=== PATIENT | female | born 1990 | race American Indian/Alaskan Native ===

== ENCOUNTER 2017-07-02 05:13 | Emergency (ER) | payer MEDICAID, MEDICARE, OTHER ==
[2017-07-02 05:14] VITALS: BMI 61.6
[2017-07-02 05:21] VITALS: TEMP 98.6; O2SAT 99
--- NOTE | 2017-07-02 05:42 | ED PDOC ---
Arrival/HPI - General Chief Complaint: Medical Clearance Time Seen by Provider: 07/02/17 05:32 Historian: Patient - History of Present Illness Narrative History of Present Illness (Text): 07/02/17 05:52 27 year old female, whose past medical history includes polycystic ovarian syndrome and anemia, presents to the emergency department complaining vaginal bleeding. Patient states she began experiencing heavy vaginal bleeding 4 days prior. Patient notes her menstrual cycles have been irregular since she was 16. Patient states her last menstrual period was 1 month ago. Patient denies any abdominal pain, fever, chills, chest pain, shortness of breath, nausea, vomiting , diarrhea, urinary symptoms, back pain, neck pain, headache, dizziness, or any other complaints. Dampener Operator: Dr. Lenz Time/Duration: < week (4 days) Symptom Onset: Gradual Symptom Course: Unchanged Context: Home Past Medical History - Provider Review Nursing Documentation Reviewed: Yes - Infectious Disease Hx of Infectious Diseases: None - Tetanus Immunization Tetanus Immunization: Unknown - Cardiac Hx Hypertension: Yes - Pulmonary Hx Bronchitis: Yes - Neurological Hx Neurological Disorder: No - HEENT Hx HEENT Disorder: No - Renal Hx Renal Disorder: No - Endocrine/Metabolic Hx Endocrine Disorders: No - Hematological/Oncological Hx Blood Disorders: No - Integumentary Hx Dermatological Disorder: No - Musculoskeletal/Rheumatological Hx Musculoskeletal Disorders: No - Gastrointestinal Hx Gastrointestinal Disorders: No - Genitourinary/Gynecological Other/Comment: polycystic ovaries - Psychiatric Hx Schizophrenia: Yes (affective) Hx Substance Use: No - Past Surgical History Past Surgical History: No Previous - Surgical History Hx Cholecystectomy: Yes (1 year ago) - Anesthesia Hx Anesthesia: Yes Hx Anesthesia Reactions: No - Suicidal Assessment Feels Threatened In Home Enviroment: No Family/Social History - Physician Review Nursing Documentation Reviewed: Yes Family/Social History: No Known Family HX Smoking Status: Never Smoked Hx Alcohol Use: No Hx Substance Use: No Hx Substance Use Treatment: No Allergies/Home Meds Allergies/Adverse Reactions: Allergies diphenhydramine Allergy (Verified 07/02/17 05:22) DIZZINESS diphenhydramine HCl [From Benadryl] Adverse Reaction (Severe, Verified 07/02/17 05:22) OTHER "FEELS JITTERY" Home Medications: Home Meds Medication Instructions Recorded Confirmed LORazepam [Ativan] 0.5 mg PO BID 09/28/15 07/02/17 Review of Systems - Physician Review All systems were reviewed & negative as marked: Yes - Review of Systems Constitutional: absent: Fevers, Other (Chills) Respiratory: absent: SOB Cardiovascular: absent: Chest Pain Gastrointestinal: absent: Abdominal Pain, Diarrhea, Nausea, Vomiting Genitourinary Female: Vaginal Bleeding (heavy bleeding for the past 4 days). absent: Dysuria, Hematuria Musculoskeletal: absent: Back Pain, Neck Pain Neurological: absent: Headache, Dizziness Physical Exam Vital Signs Reviewed: Yes Vital Signs Temp Pulse Resp BP Pulse Ox 07/02/17 05:20 98.6 F 110 H 18 138/83 99 Temperature: Afebrile Blood Pressure: Normal Pulse: Regular Respiratory Rate: Normal Appearance: Positive for: Well-Appearing, Non-Toxic, Comfortable Pain Distress: None Mental Status: Positive for: Alert and Oriented X 3 - Systems Exam Head: Present: Atraumatic, Normocephalic Pupils: Present: PERRL Extroacular Muscles: Present: EOMI Conjunctiva: Present: Normal Mouth: Present: Moist Mucous Membranes Neck: Present: Normal Range of Motion Respiratory/Chest: Present: Clear to Auscultation, Good Air Exchange. No: Respiratory Distress, Accessory Muscle Use Cardiovascular: Present: Regular Rate and Rhythm Abdomen: Present: Normal Bowel Sounds. No: Tenderness, Distention, Peritoneal Signs Genitourinary/Pelvic Exam: Present: Normal External Genitalia, Vaginal Bleeding (scanty amount in vaginal introitus), Other (RN Laura present as dinkey operator slag) Upper Extremity: Present: Normal Inspection. No: Cyanosis, Edema Lower Extremity: Present: Normal Inspection. No: Edema, CALF TENDERNESS Neurological: Present: GCS=15, CN II-XII Intact, Speech Normal Skin: Present: Warm, Dry, Normal Color. No: Rashes Psychiatric: Present: Alert, Oriented x 3, Normal Insight, Normal Concentration Medical Decision Making ED Course and Treatment: 07/02/17 05:43 Impression: 27 year old female presents complaining of heavy vaginal bleeding for the past 4 days. Plan: -- Labs -- Reassess and disposition Prior Visits: Notes and results from previous visits were reviewed. On 04/30/16 patient came in complaining of vaginal bleeding since approximately 2 months. Progress Notes: - Lab Interpretations Lab Results: 07/02/17 05:45 07/02/17 05:45 Lab Results 07/02/17 05:45: Sodium 141, Potassium 4.1, Chloride 108, Carbon Dioxide 26, Anion Gap 11, BUN 14, Creatinine 0.9, Est GFR ( Amer) > 60, Est GFR (Non- Af Amer) > 60, Random Glucose 85, Calcium 9.1 07/02/17 05:45: WBC 5.7, RBC 3.82, Hgb 11.7 L, Hct 36.0, MCV 94.2, MCH 30.6, MCHC 32.5, RDW 14.2, Plt Count 226, MPV 10.8 - Scribe Statement The provider has reviewed the documentation as recorded by the [employer]ara training with Katarina Engel All medical record entries made by the Scribe were at my direction and personally dictated by me. I have reviewed the chart and agree that the record accurately reflects my personal performance of the history, physical exam, medical decision making, and the department course for this patient. I have also personally directed, reviewed, and agree with the discharge instructions and disposition. Disposition/Present on Arrival - Present on Arrival Any Indicators Present on Arrival: No History of DVT/PE: No History of Uncontrolled Diabetes: No Urinary Catheter: No History of Decub. Ulcer: No History Surgical Site Infection Following: None - Disposition Have Diagnosis and Disposition been Completed?: Yes Diagnosis: DUB (dysfunctional uterine bleeding) Disposition: HOME/ ROUTINE Disposition Time: 06:20 Patient Plan: Discharge Patient Problems: Current Active Problems Problem Status Onset DUB (dysfunctional uterine bleeding) Acute Condition: STABLE Discharge Instructions (ExitCare): Dysfunctional Uterine Bleeding (ED) Additional Instructions: Follow up with the grader marker this week Referrals: Nadine Robles MD [Staff Provider] - Follow up with primary Forms: [employer] ([place])
[2017-07-02 05:56] LABS: HEMOGLOBIN 11.7 g/dL (12.0-16.0); MEAN CELL VOLUME 94.2 fl (80.0-105.0); MEAN CORPUSCULAR HEMOGLOBIN 30.6 pg (25.0-35.0); MEAN CORPUSCULAR HGB CONC 32.5 g/dl (31.0-37.0); MEAN PLATELET VOLUME 10.8 fl (7.0-11.0); RBC 3.82 10^6/uL (3.5-6.1); RED CELL DISTRIBUTION WIDTH 14.2 % (11.5-14.5); WHITE BLOOD COUNT 5.7 10^3/ul (4.5-11.0)
[2017-07-02 06:08] LABS: BLOOD UREA NITROGEN 14 mg/dL (7-21); CALCIUM 9.1 mg/dL (8.4-10.5); GFR AFRICAN-AMERICAN > 60; GFR NON-AFRICAN AMERICAN > 60
[2017-07-02 06:29] VITALS: BP 130/80; PULSE 90; RESP 14
== END 2017-07-02 06:29 | disposition home or self-care (01) ==
LOC: ED 05:13
DX: N93.8 Other specified abnormal uterine and vaginal bleeding (principal); I10 Essential (primary) hypertension